=== PATIENT | male | born 1980 | race Caucasian/White ===

== ENCOUNTER 2021-12-27 11:33 | Emergency (ER) | payer MEDICAID, SELFPAY ==
--- NOTE | 2021-12-27 11:51 | ED_ITS ---
HPI - General Adult General Time Seen by Provider: 11:51 Date Seen: 12/27/21 Chief complaint: Extremity Pain/Injury, Lower Stated complaint: Hurt side of left foot Time Seen by Provider: 12/27/21 11:50 Source: patient History of Present Illness HPI narrative: Jed is a 41 year old male with no past medical history who presents to the ED via private care with a left foot injury. Patient states he was skateboarding with his daughter yesterday afternoon, he was coming down a half pipe and went to kick out the board to grab it and planted his left foot on the top pipe and rolled in his foot, patient did feel a crack, he had been ambulating after the injury, he has been icing and elevating and taking Motrin for pain. Denies any numbness or tingling. No other injury noted. Related Data Home Medications Medication Instructions Recorded Confirmed No Known Home Medications 12/27/21 12/27/21 Allergies Allergy/AdvReac Type Severity Reaction Status Date / Time No Known Drug Allergies Allergy Verified 12/27/21 11:52 Review of Systems Status of ROS: Reports: 10 or more systems reviewed and unremarkable except as noted in History and below Exam Narrative: Exam Narrative: General: No obvious distress sitting comfortably HEENT: Head is atraumatic, pupils equal round reactive to light Neck: Nontender cervical spine, full range of motion, supple Lungs: Clear to auscultation bilaterally Heart: S1-S2 normal sinus rhythm Abdomen: Soft nontender Muscle skeletal: Left lower extremity: Swelling and tenderness to palpation the proximal 5th metatarsal. Nontender to palpation the lateral and medial malleolus, full range of motion on dorsal and plantar flexion. Neuro: Alert awake and oriented x3 Const: Vital Signs, click to edit/add: Vital Signs - 24 hr 12/27/21 11:52 Temperature 97.8 F Pulse Rate [Left P ulse Oximeter] 78 Respiratory Rate 18 Blood Pressure [Ri ght Upper Arm] 117/80 Pulse Oximetry 98 Oxygen Delivery Me thod Room Air Course Course Hospital Course: 12:30 PM: AIDET performed. Workup will include XR left foot minimal three views rule out fracture. Patient does not want anything for pain at this time. Reevaluation(s) Reevaluation #1: Spoke with Silvia from Orthopedics regarding imaging results, recommendations were surgical shoe and non-weight bear crutches, will have him follow up with Orthopedics here in [place] in the next 5-7 days. Time: 12:38 Reevaluation #2: Patient was updated on his imaging results. Findings showed a nondisplaced minimally comminuted transverse fracture of the proximal 5th metatarsal extending into the tarsal metatarsal joint. The joint spaces are preserved. Soft tissue swelling in the lateral dorsal foot. Per Monico magana MD at 12:43 p.m. Plan would be to discharge he will have follow-up with orthopedics [facility] as scheduled, he should continue with [id number] Motrin or Tylenol as needed for pain every 4-6 hours. Reasons to return given Vital Signs Vital signs: Initial Vital Signs Temperature 97.8 F 12/27/21 11:52 Temperature Source Temporal Artery Scan 12/27/21 11:52 Pulse Rate 78 12/27/21 11:52 Respiratory Rate 18 12/27/21 11:52 Blood Pressure 117/80 12/27/21 11:52 Blood Pressure Mean 92 12/27/21 11:52 Blood Pressure Position Sitting 12/27/21 11:52 Pulse Oximetry 98 12/27/21 11:52 Oxygen Delivery Method 12/27/21 11:52 Vital Signs Temperature 97.8 F 12/27/21 11:52 Pulse Rate 78 12/27/21 11:52 Respiratory Rate 18 12/27/21 11:52 Blood Pressure 117/80 12/27/21 11:52 Pulse Oximetry 98 12/27/21 11:52 Oxygen Delivery Method 12/27/21 11:52 Temperature 97.8 F 12/27/21 11:52 Pulse Rate 78 12/27/21 11:52 Respiratory Rate 18 12/27/21 11:52 Blood Pressure 117/80 12/27/21 11:52 Pulse Oximetry 98 12/27/21 11:52 Oxygen Delivery Method 12/27/21 11:52 Discharge Plan Discharge Clinical Impression: Fracture of fifth metatarsal bone of left foot Patient Disposition: Home, Self-Care Condition: Improved Instructions: Foot Fracture in Adults (ED) Additional Instructions: Follow up appointment scheduled on 12/30 with a 4:40pm arrival time. [facility] [place] [place] [address] Activity Level: No Weight Bearing Activity Detail: To wear the surgical shoe, no weight bearing on the left foot, crutches for support. Discharge Diet: Regular Prescriptions: No Action No Known Home Medications Stand Alone Forms: [employer] Info Instructions
[2021-12-27 11:52] VITALS: BP 117/80; PULSE 78; RESP 18; TEMP 36.6; O2SAT 98; BMI 22.2
--- NOTE | 2021-12-27 12:07 | CRLHL7_ITS ---
For Patients: As a result of the Century Cures Act, medical imaging exams and procedure reports are released immediately into your electronic medical record. You may view this report before your referring provider. If you have questions, please contact your health care provider. Indication: Left foot pain around 5th metatarsal. Technique: Three views. Comparison: None. Findings/Impression: Nondisplaced minimally comminuted transverse fracture of the proximal 5th metatarsal extending into the tarsometatarsal joint. The joint spaces are preserved. Soft tissue swelling in the lateral and dorsal foot. Dictated by Monico Marin MD @ 12/27/2021 12:43:40 PM (Electronically Signed)
== END 2021-12-27 13:31 | disposition home or self-care (01) ==
PROVIDERS: Emergency Provider Student in an Organized Health Care Education/Training Program
DX: S92.352A Displaced fracture of fifth metatarsal bone, left foot, initial encounter for closed fracture (principal); Y93.51 Activity, roller skating (inline) and skateboarding; Y92.838 Other recreation area as the place of occurrence of the external cause
CPT/HCPCS: 73630; 99284

== ENCOUNTER 2022-12-06 11:18 | Outpatient (CLI) | payer MEDICAID, SELFPAY | END 2022-12-06 11:19 | disposition home or self-care (01) | PROVIDERS: Visit Provider Family Medicine | DX: Z11.3 Encounter for screening for infections with a predominantly sexual mode of transmission (principal) | CPT/HCPCS: 86592; 86593; 86703; 86705; 86706; 86803; 87340; 87491; 87591 ==

== ENCOUNTER 2023-04-03 20:04 | Emergency (ER) | payer MEDICAID, SELFPAY ==
[2023-04-03 20:07] VITALS: BP 129/82; PULSE 102; RESP 16; TEMP 36.9; O2SAT 97; BMI 22.0
[2023-04-03] MEDS: TETRACAINE 0.5% OPHTH 2 DROP EYE-BOTH (23:30)
--- NOTE | 2023-04-03 23:38 | ED_ITS ---
HPI - General Adult General Date Seen: 04/03/23 Chief complaint: Eye Problems Stated complaint: Foreign object L eye Time Seen by Provider: 04/03/23 23:26 Source: patient and RN notes reviewed Mode of arrival: ambulatory Limitations: no limitations History of Present Illness HPI narrative: Patient is a 42-year-old male here with suspected foreign body in his left eye. He was doing the metal grinding and felt a kayy go in there a number of hours ago. Denies visual complaints, photophobia, just has irritation. He has had this happen before and it feels similar. Tetanus up-to-date. Related Data Home Medications Medication Instructions Recorded Confirmed No Known Home Medications 04/03/23 04/03/23 Allergies Allergy/AdvReac Type Severity Reaction Status Date / Time No Known Drug Allergies Allergy Verified 12/13/22 09:25 [facility] Medical History (Updated 04/03/23 @ 23:37 by Soheila Cm MD) Stress ?F43.9 - Reaction to severe stress, unspecified (ICD-10) Anxiety ?F41.9 - Anxiety disorder, unspecified (ICD-10) Cyst of neck Surgical History Hx of tonsillectomy ?Z90.89 - Acquired absence of other organs (ICD-10) Social History (Updated 12/13/22 @ 09:32 by Laurie Whitlock MD) 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 Mild corneal injection on the left. With the naked eye was not able to see a foreign body. Extraocular movements are full. Lids normal. Const: Vital Signs, click to edit/add: Vital Signs - 24 hr 04/03/23 20:07 Temperature 98.5 F Pulse Rate [Pulse Oximeter] 102 H Respiratory Rate 16 Blood Pressure [Ri ght Upper Arm] 129/82 Pulse Oximetry 97 Oxygen Delivery Me thod Room Air Documenting provider has reviewed patient's vital signs: yes Course Course ED Course: I placed tetracaine drops in the eye followed by fluorescein and then was able to identify a small defect at about 1:00. I used the tip of the needle to gently probed this area and as small metal kayy dislodged. There was a little bit of remaining abrasion. I was able to flush out the foreign body with another drop or two of tetracaine. He tolerated all this well without immediate complication. Will start him on tobramycin, discussed reasons to return such as severe pain, vision changes photophobia. Eye clinic follow-up if not improving over the next couple of days. Lubricant drops, ibuprofen may help symptomatically. Vital Signs Vital signs: Initial Vital Signs Temperature 98.5 F 04/03/23 20:07 Temperature Source Temporal Artery Scan 04/03/23 20:07 Pulse Rate 102 H 04/03/23 20:07 Respiratory Rate 16 04/03/23 20:07 Blood Pressure 129/82 04/03/23 20:07 Blood Pressure Mean 97 04/03/23 20:07 Blood Pressure Position Sitting 04/03/23 20:07 Pulse Oximetry 97 04/03/23 20:07 Oxygen Delivery Method Room Air 04/03/23 20:07 Vital Signs Temperature 98.5 F 04/03/23 20:07 Pulse Rate 102 H 04/03/23 20:07 Respiratory Rate 16 04/03/23 20:07 Blood Pressure 129/82 04/03/23 20:07 Pulse Oximetry 97 04/03/23 20:07 Oxygen Delivery Method Room Air 04/03/23 20:07 Temperature 98.5 F 04/03/23 20:07 Pulse Rate 102 H 04/03/23 20:07 Respiratory Rate 16 04/03/23 20:07 Blood Pressure 129/82 04/03/23 20:07 Pulse Oximetry 97 04/03/23 20:07 Oxygen Delivery Method Room Air 04/03/23 20:07 Discharge Plan Discharge Clinical Impression: Corneal abrasion, Foreign body of cornea, left Patient Disposition: Home, Self-Care Condition: Improved Instructions: Eye Foreign Body (ED) Additional Instructions: Antibiotic drops as prescribed. Eye clinic follow-up if not improving over the next 1-2 days. Ibuprofen and lubricant eye drops can be helpful symptomatically. Return at any time for acute worsening such as severe pain, vision changes, light sensitivity. Prescriptions: No Action No Known Home Medications Follow Up/Referrals: Provider,Not a Local [Primary Care Provider] - Stand Alone Forms: [employer] Info Instructions
== END 2023-04-03 23:54 | disposition home or self-care (01) ==
LOC: ED 23:41
PROVIDERS: Emergency Provider Emergency Medicine
DX: T15.02XA Foreign body in cornea, left eye, initial encounter (principal)
CPT/HCPCS: 65222; 99283; A9270

== ENCOUNTER 2023-07-20 06:55 | Emergency (ER) | payer MEDICAID, SELFPAY ==
[2023-07-20 07:04] VITALS: BP 122/79; PULSE 89; RESP 16; TEMP 36.4; O2SAT 98; BMI 22.2
--- NOTE | 2023-07-20 07:10 | ED.EYEPROB ---
HPI - Eye Problem General Date Seen: 07/20/23 Chief complaint: Eye Problems Stated complaint: something in eye Time Seen by Provider: 07/20/23 07:03 Source: patient Mode of arrival: ambulatory Limitations: no limitations History of Present Illness HPI Narrative: Was cleaning gutters yesterday, thinks there's some shingle grit in left eye. Some white flashes but no other vision change. Hx of foreign bodies in eye before. R Patient's vision is checked by the nurses 2024 both eyes. He does not wear contacts. He is able to see says fine he has no evidence of any visual changes. Just feels like there is some great, he but seem a scatter is on the buildings. It was not wearing safety glasses. chief complaint: eye redness and foreign body Onset (ago): day(s) (2) Onset description: gradual Duration: constant Location: left eye Eye Symptoms: foreign body sensation Place: home Severity: mild Treatments Prior to Arrival: none Related Data Patient tetanus UTD: Yes Home Medications Medication Instructions Recorded Confirmed No Known Home Medications 04/03/23 07/20/23 Allergies Allergy/AdvReac Type Severity Reaction Status Date / Time No Known Drug Allergies Allergy Verified 07/20/23 07:04 Review of Systems Status of ROS: Reports: 6 or more systems reviewed and unremarkable except as noted in History and below PFSH PFSH Medical History Stress ?F43.9 - Reaction to severe stress, unspecified (ICD-10) Anxiety ?F41.9 - Anxiety disorder, unspecified (ICD-10) Cyst of neck Surgical History Hx of tonsillectomy ?Z90.89 - Acquired absence of other organs (ICD-10) Social History 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 Do you use any of these nicotine containing products: None Second hand tobacco smoke exposure: No How often do you have a drink containing alcohol: never How often do you have six or more drinks on one occasion: Never AUDIT-C Alcohol total score: 0 Non-prescribed substance use: denies use Little interest or pleasure in doing things: more than half the days Feeling down, depressed, or hopeless: more than half the days service: No Exam Narrative: Exam Narrative: Delightful young gentleman in no apparent distress, a little bit of conjunctiva redness of the left eye, extraocular muscles normal pupils equal round reactive to light, is anterior chamber appears quiet, and clear. Unable to see a foreign body with the slit lamp, but when I had floor seen there is a small scratch on the 12 o'clock position overlying his cornea. There is no evidence of foreign body I can see. Upper lid bari in normal. Lower lid normal also. Sensation went away with 2 drops of Alcaine. I did put some erythromycin ointment in his eye, given the tube to use. Const: Vital Signs, click to edit/add: Vital Signs - 24 hr 07/20/23 07:04 Temperature 97.6 F Pulse Rate [Pulse Oximeter] 89 Respiratory Rate 16 Blood Pressure [Ri ght Upper Arm] 122/79 Pulse Oximetry 98 Oxygen Delivery Me thod Room Air Course Vital Signs Vital signs: Initial Vital Signs Temperature 97.6 F 07/20/23 07:04 Temperature Source Temporal Artery Scan 07/20/23 07:04 Pulse Rate 89 07/20/23 07:04 Respiratory Rate 16 07/20/23 07:04 Blood Pressure 122/79 07/20/23 07:04 Blood Pressure Mean 93 07/20/23 07:04 Blood Pressure Position Sitting 07/20/23 07:04 Pulse Oximetry 98 07/20/23 07:04 Oxygen Delivery Method Room Air 07/20/23 07:04 Vital Signs Temperature 97.6 F 07/20/23 07:04 Pulse Rate 89 07/20/23 07:04 Respiratory Rate 16 07/20/23 07:04 Blood Pressure 122/79 07/20/23 07:04 Pulse Oximetry 98 07/20/23 07:04 Oxygen Delivery Method Room Air 07/20/23 07:04 Temperature 97.6 F 07/20/23 07:04 Pulse Rate 89 07/20/23 07:04 Respiratory Rate 16 07/20/23 07:04 Blood Pressure 122/79 07/20/23 07:04 Pulse Oximetry 98 07/20/23 07:04 Oxygen Delivery Method Room Air 07/20/23 07:04 MDM - Eye Problem MDM Narrative Medical decision making narrative: During this evaluation I considered multiple diagnosis including foreign body sensation, foreign body, corneal abrasion, Iriditis, open globe secondary to trauma. Conjunctivitis, acute glaucoma hyphema and corneal ulcer. Among other things. Medical Records Attestation: I reviewed the patient's medical records. Discharge Plan Discharge Clinical Impression: Corneal abrasion, left Patient Disposition: Home, Self-Care Condition: Improved Instructions: Corneal Abrasion (ED) Additional Instructions: Discussed with patient, very small corneal abrasion on the left I saw no evidence of a foreign body. We will use the erythromycin ointment 3 times a day to the eye for the next 5 days. If he is not 100% better he will head over to tomorrow to the [facility] to get checked. Should you safety glasses Prescriptions: No Action No Known Home Medications Follow Up/Referrals: Provider,Not a Local [Primary Care Provider] - Stand Alone Forms: [employer] Info Instructions Procedures Additional Procedures Procedure name: Slit lamp Pre procedure diagnosis: Corneal abrasion Post procedure diagnosis: Corneal abrasion Written consent by: patient Estimated blood loss (if any): none Specimen sent: No Conclusion: patient tolerated procedure
== END 2023-07-20 07:40 | disposition home or self-care (01) ==
LOC: ED 07:28
PROVIDERS: Emergency Provider Family Medicine
DX: S05.02XA Injury of conjunctiva and corneal abrasion without foreign body, left eye, initial encounter (principal)
CPT/HCPCS: 99283; A9270

== ENCOUNTER 2024-03-18 07:58 | Outpatient (CLI) | payer MEDICAID, SELFPAY ==
--- NOTE | 2024-03-18 | CRLHL7_ITS ---
For Patients: As a result of the Century Cures Act, medical imaging exams and procedure reports are released immediately into your electronic medical record. You may view this report before your referring provider. If you have questions, please contact your health care provider. INDICATION: : MRI metal screening TECHNIQUE: One-view orbit COMPARISON: None FINDINGS: No metallic orbital foreign body. Dental amalgam. Facial and calvarial bones included in the field of view appear normal. IMPRESSION: No orbital metallic foreign bodies. Dictated by Merry Bruno MD @ 03/18/2024 9:15:58 AM (Electronically Signed)
--- NOTE | 2024-03-18 09:15 | MR_ITS ---
[facility] [address] [address] Phone:?[phone] Fax:?[phone] Referring Physician Information: ZAHRAA Starr [address] [facility] [address] Phone:?[phone] Fax:?[phone] Patient:Lincoln Ch D.O.B:?1980 Sex:?Male Phone:?[phone] [facility] MRN:?[id number] Exam Date:?03/18/2024 EXAM: MRI of the RIGHT SHOULDER, without contrast CLINICAL INFORMATION: Male, 43 years old, with right shoulder pain INDICATION: Evaluate rotator cuff and proximal biceps pain PRIOR SURGERY: None reported. PLAIN FILMS: Radiographs 02/01/2024 COMPARISONS: No prior MRIs available. TECHNICAL INFORMATION: Using a 1.5T MR scanner and a localizing surface coil: Coronals: PD, T2, STIR Sagittals: PD, T2 Axials: PD, T2 SEDATION: None CONTRAST: None FINDINGS: Bones: Proximal humerus: Focal prominent marrow edema is seen in the anterior greater tuberosity in the region of rotator cuff tearing. An adjacent focus of cystic change is present, as well. No fracture. Glenoid: No fracture or marrow edema/pathology. No osseous Bankart lesion. Rotator cuff and muscles/tendons: Supraspinatus: Moderate supraspinatus tendinosis with high-grade full-thickness or near full-thickness bursal sided tearing at the anterior distal insertional footprint measuring approximately 1.0 cm in AP dimension (coronal series 5 image 10, and sagittal series 9 image 6). There is interstitial delamination involving the posterior distal tendon fibers, which are otherwise intact. There is no muscle belly belly atrophy. Infraspinatus: Mild to moderate infraspinatus tendinosis, without tear. Teres minor: No tendinopathy, tear or atrophy. Subscapularis: Mild thickening and tendinosis of the subscapularis distal tendon, without tear. Deltoid: No strain or atrophy. Coracoacromial arch: Acromion morphology: The acromion has type II morphology. No discrete subacromial osseous spur or os acromiale. Acromiohumeral space: The acromiohumeral space is within normal limits. Coracohumeral space: The coracohumeral space is within normal limits. Acromioclavicular joint: Joint: No acute injury, arthropathy, or inferior hypertrophy. Ligaments: The AC joint ligaments are mildly thickened. Additionally, there is undersurface hypertrophy of the clavicle at the clavicular attachment (coronal series 6 image 6, and sagittal series 9 image 24). Bursae: Subacromial-subdeltoid: Mild subacromial/subdeltoid bursitis. Subcoracoid: No convincing subcoracoid bursal thickening/bursitis. Biceps tendon: The long head of the biceps tendon is present within the bicipital groove. The intra-articular and extra-articular segments are intact without tendinosis, tenosynovitis, or displacement. Glenohumeral joint: Effusion/cyst: No significant glenohumeral joint effusion. Articular cartilage: Humeral head: No osteochondral abnormalities. Glenoid: No osteochondral abnormalities. Loose bodies: No discrete intra-articular body within the joint. Labrum:?No discrete SLAP tear. No other definite evidence for labral tear. No paralabral ganglion cyst is identified. Inferior glenohumeral ligament/axillary pouch:?Intact. The axillary pouch is normal in thickness and signal. No evidence of adhesive capsulitis or capsular injury. IMPRESSION: 1. High-grade full-thickness or near full-thickness bursal sided tearing of the supraspinatus at the anterior distal insertional footprint, measuring 1.0 cm in AP dimension. 2. Mild to moderate infraspinatus, and mild subscapularis tendinosis without tear. 3. Thickening of the coracoclavicular ligaments with bony hypertrophy at the clavicular attachment may suggest residua of chronic low-grade AC joint injury. There is no evidence for elevation of the distal clavicle in relation to the acromion, or inferior osteophytosis. 4. No labral tear or paralabral cyst. 5. No tendinopathy, tear, or displacement of the long head of the biceps tendon. 6. No osteochondral defect. KME Electronically signed on 03/18/2024 8:33:00 PM by Johanna Lombardo M.D.
== END 2024-03-18 07:59 | disposition home or self-care (01) ==
LOC: MRI 07:58
PROVIDERS: PCP Family Medicine; Visit Provider Physician Assistant Surgical
DX: M25.511 Pain in right shoulder (principal); M75.101 Unspecified rotator cuff tear or rupture of right shoulder, not specified as traumatic; M12.811 Other specific arthropathies, not elsewhere classified, right shoulder
CPT/HCPCS: 70030; 73221